=== PATIENT | male | born 1990 | race Two or more races ===

== ENCOUNTER 2017-05-10 21:42 | Emergency (ER) | payer SELFPAY ==
[2017-05-10 21:46] VITALS: RESP 16; O2SAT 100
--- NOTE | 2017-05-10 21:53 | ED PDOC ---
HPI: Psych/Substance Abuse Time Seen by Provider: 05/10/17 21:50 Chief Complaint (Nursing): Alcohol Ingestion Chief Complaint (Provider): etoh History Per: Patient, EMS Additional Complaint(s): Patient arrives with police and EMS acutely intoxicated. Police state that patient was found passed out on the street covered in urine. Patient has abrasion to nasal bridge. Patient is too intoxicated to answer questions. Past Medical History Reviewed: Historical Data, Nursing Documentation, Vital Signs, Unable To Obtain Vital Signs: Last Vital Signs Temp 97.6 F 05/10/17 21:45 Pulse 110 H 05/10/17 21:45 Resp 16 05/10/17 21:45 BP 137/82 05/10/17 21:45 Pulse Ox 100 05/10/17 21:45 - Family History Family History: States: No Known Family Hx - Allergies Allergies/Adverse Reactions: Allergies Allergy/AdvReac Type Severity Reaction Status Date / Time No Known Allergies Allergy Verified 05/10/17 22:05 Review of Systems ROS Statement: Except As Marked, All Systems Reviewed And Found Negative ENT: Positive for: Other (abrasion to nose) Psych: Positive for: Other (etoh) Physical Exam - Reviewed Nursing Documentation Reviewed: Yes Vital Signs Reviewed: Yes - Physical Exam Appears: Positive for: Well, Non-toxic, No Acute Distress Skin: Negative for: Rash Eye Exam: Positive for: Normal appearance Cardiovascular/Chest: Positive for: Regular Rate, Rhythm Respiratory: Positive for: Normal Breath Sounds Neurologic/Psych: Positive for: Other (intoxicated, not oriented to person, place or time) - ECG O2 Sat by Pulse Oximetry: 100 Pulse Ox Interpretation: Normal Medical Decision Making Medical Decision Makin27 year old intoxicated male Plan: 1:1 observation BAL Glucose POC CT head Glucose POC: 110 Disposition - Clinical Impression Clinical Impression: Alcohol intoxication - Patient ED Disposition Is Patient to be Admitted: Transfer of Care - Disposition Disposition: Transfer of Care Disposition Time: 23:55 Condition: FAIR Forms: [employer] (U[place]andan) Patient Signed Over To: Neha Macedo Handoff Comments: pending CT head, sobriety and final dispo
--- NOTE | 2017-05-11 02:56 | ED PDOC ---
- ECG O2 Sat by Pulse Oximetry: 100 - Progress ED Course And Treament: Case endorsed to technical document writer from Breanne BAKER pending CT, clinical sobriety EXAM: CT Head Without Intravenous Contrast EXAM DATE/TIME: Exam ordered 05/10/2017 11:09 PM CLINICAL HISTORY: 27 years old, male; Injury or trauma; Fall; Additional info: ETOH, ? trauma TECHNIQUE: Axial computed tomography images of the head/brain without intravenous contrast. All CT scans at this facility use one or more dose reduction techniques, viz.: automated exposure control; ma/kV adjustment per patient size (including targeted exams where dose is matched to indication; i.e. head); or iterative reconstruction technique. Coronal and sagittal reformatted images were created and reviewed. COMPARISON: No relevant prior studies available. FINDINGS: Brain: Normal. No hemorrhage. No significant white matter disease. No edema. Ventricles: Normal. No ventriculomegaly. Bones/joints: Normal. No acute fracture. Soft tissues: Normal. Vasculature: Mild increased density of the visualized vasculature suggestive of dehydration. Sinuses: There is nonspecific opacification within the paranasal sinuses. Mastoid air cells: Unremarkable as visualized. No mastoid effusion. IMPRESSION: No acute intracranial hemorrhage. 2:45 Patient awake, alert, oriented x3. Ambulating steady gait. Brother at bedside to take patient home. Patient stable for discharge. Disposition - Clinical Impression Clinical Impression: Alcohol intoxication - POA Present On Arrival: None - Disposition Disposition: Routine/Home Disposition Time: 02:56 Condition: STABLE Instructions: Alcohol Intoxication (ED)
[2017-05-11 03:07] VITALS: BP 132/76; PULSE 88; TEMP 97.9
--- NOTE | 2017-05-11 08:12 | CT ---
PROCEDURE: CT HEAD WITHOUT CONTRAST. HISTORY: etoh, ? trauma COMPARISON: None available. TECHNIQUE: Axial computed tomography images were obtained through the head/brain without intravenous contrast. Radiation dose: Total exam DLP = 1545.58 mGy-cm. This CT exam was performed using one or more of the following dose reduction techniques: Automated exposure control, adjustment of the mA and/or kV according to patient size, and/or use of iterative reconstruction technique. FINDINGS: HEMORRHAGE: No intracranial hemorrhage. BRAIN: Normal hodgson-white matter differentiation and density are appreciated throughout the cerebrum and cerebellum with the brainstem appearing unremarkable as well. There is no mass effect. There is no suspicious extra-axial fluid collection and the midline brain anatomy appears diffusely unremarkable. VENTRICLES: Unremarkable. No hydrocephalus. CALVARIUM: No destructive bony lesion or displaced fracture identified including through the skullbase. PARANASAL SINUSES: Multifocal sinusitis changes affect the right frontal sinus, the bilateral ethmoid sinuses and right greater left maxillary sinuses as well as the bilateral sphenoid sinuses with hypodevelopment noted at right sphenoid sinus. MASTOID AIR CELLS: Unremarkable as visualized. No inflammatory changes. OTHER FINDINGS: None. IMPRESSION: Unremarkable unenhanced head CT with exception of incidental multifocal sinusitis as discussed above.
== END 2017-05-11 03:08 | disposition home or self-care (01) ==
LOC: H.ER 21:42 → EDBD 21:42 → H.ER 05-11 03:08
DX: F10.129 Alcohol abuse with intoxication, unspecified (principal); S09.90XA Unspecified injury of head, initial encounter; W19.XXXA Unspecified fall, initial encounter; Y92.89 Other specified places as the place of occurrence of the external cause; J32.9 Chronic sinusitis, unspecified
CPT/HCPCS: 70450; 82948; 99282; G0480